=== PATIENT | female | born 1975 | race Caucasian/White ===

== ENCOUNTER 2018-02-11 11:30 | Emergency (ER) | payer OTHER ==
[2018-02-11 11:30] VITALS: BMI 28.3
[2018-02-11 11:42] VITALS: RESP 18; O2SAT 100
[2018-02-11] MEDS ORDERED: Sodium Chloride 0.9% 1,000 ML ONE (12:15)
[2018-02-11] MEDS: Sodium Chloride 0.9% 1,000 ML IV ONE (12:35)
--- NOTE | 2018-02-11 12:37 | C.PDOC ---
History Of Present Illness 42 y/o female presents to the ER complaining of abdominal pain. Patient states that she was evaluated for abdominal pain at [facility] yesterday and she had labwork and CT scan done. Upon discharge, she was instructed to follow up with her PMD. As per son, patient was told that she may need to have her gallbladder removed. Denies having fever, chills, and other complaints at this time. Time Seen by Provider: 02/11/18 11:44 Chief Complaint (Nursing): Abdominal Pain History Per: Patient, Family History/Exam Limitations: no limitations Onset/Duration Of Symptoms: Days Current Symptoms Are (Timing): Still Present Severity: Moderate Location Of Pain/Discomfort: RUQ Associated Symptoms: denies: Fever, Chills Past Medical History Reviewed: Historical Data, Nursing Documentation, Vital Signs Vital Signs: Last Vital Signs Temp 98.3 F 02/11/18 15:36 Pulse 57 L 02/11/18 15:36 Resp 18 02/11/18 15:36 BP 155/90 H 02/11/18 15:36 Pulse Ox 100 02/11/18 18:14 - Medical History PMH: Hypothyroidism Surgical History: Appendectomy Family History: States: No Known Family Hx - Social History Hx Tobacco Use: No Hx Alcohol Use: No Hx Substance Use: No - Immunization History Hx Tetanus Toxoid Vaccination: No Hx Influenza Vaccination: No Hx Pneumococcal Vaccination: No Review Of Systems Except As Marked, All Systems Reviewed And Found Negative. Constitutional: Negative for: Fever, Chills Gastrointestinal: Positive for: Abdominal Pain (RUQ abdominal pain). Negative for: Nausea, Vomiting Genitourinary: Negative for: Dysuria, Hematuria Physical Exam - Physical Exam Appears: Non-toxic, No Acute Distress Skin: Normal Color, Warm, Dry Head: Atraumatic, Normacephalic Eye(s): bilateral: Normal Inspection Nose: Normal Oral Mucosa: Moist Neck: Supple Chest: Symmetrical Cardiovascular: Rhythm Regular Respiratory: Normal Breath Sounds, No Rales, No Rhonchi, No Wheezing Gastrointestinal/Abdominal: Soft, Tenderness (RUQ tenderness), No Guarding, No Rebound Neurological/Psych: Oriented x3, Normal Speech ED Course And Treatment - Laboratory Results Result Diagrams: 02/11/18 12:40 02/11/18 12:40 Lab Interpretation: No Acute Changes Urine POC: Negative O2 Sat by Pulse Oximetry: 100 (RA) Pulse Ox Interpretation: Normal - CT Scan/US No standard instances Other Rad Studies (CT/US): Read By Radiologist, Radiology Report Reviewed CT/US Interpretation: Date of service: 02/11/2018. HISTORY: Pain RUQ. COMPARISON: None. TECHNIQUE: Sonographic evaluation of the right upper quadrant of the abdomen. FINDINGS: LIVER: Measures 17.5 cm in length. Normal echogenicity of the liver parenchyma. No mass. No intrahepatic bile duct dilatation. GALLBLADDER: Unremarkable. No gallstones. COMMON BILE DUCT: Measures 3 mm. No stones. No dilatation. PANCREAS: Unremarkable as visualized. No mass. No ductal dilatation. RIGHT KIDNEY: Measures 9.3 cm in length. Normal echogenicity. No calculus, mass, or hydronephrosis. AORTA: No aneurysmal dilatation. IVC: Unremarkable. OTHER FINDINGS: None . IMPRESSION : Unremarkable examination. No evidence of cholelithiasis or cholecystitis. Progress Note: Treated with IVF NSS, toradol, pepcid and maalox. Patient continues to have RLQ abdominal pain. Morphine ordered and patient refused. Patient offered admission for abdominal pain but refused and requested to be discharged to follow up with Dr Cherie Ziegler Medical Decision Making Medical Decision Making: Plan: --Labs --UA --US-Abd --Toradol IV -- IV Fluids Disposition Counseled Patient/Family Regarding: Studies Performed, Diagnosis, Need For Followup - Disposition Referrals: Jr Ziegler MD [Medical Doctor] - Madison June MD [Medical Doctor] - Disposition: HOME/ ROUTINE Disposition Time: 16:30 Condition: STABLE Additional Instructions: Return to ED if any increase symptoms Follow up with PMD for further evaluation Follow up with GI for further evaluation Instructions: Acute Abdomen (Belly Pain), Adult (DC) Forms: [employer] (Angolan) - POA Present On Arrival: None - Clinical Impression Clinical Impression: Abdominal pain - PA / BUSINESS OFFICE MANAGER / Resident Statement MD/DO has reviewed & agrees with the documentation as recorded. - Scribe Statement The provider has reviewed the documentation as recorded by the [employer] Provider Attestation All medical record entries made by the Scribe were at my direction and personally dictated by me. I have reviewed the chart and agree that the record accurately reflects my personal performance of the history, physical exam, medical decision making, and the department course for this patient. I have also personally directed, reviewed, and agree with the discharge instructions and disposition.
[2018-02-11 12:49] LABS: BASO % 1.1 % (0.0-2.0); LYMPH # 1.1 K/uL (1.0-4.3); LYMPH % 38.9 % (20.0-40.0); MEAN CELL VOLUME 86.4 fL (81.0-99.0); MEAN CORPUSCULAR HEMOGLOBIN 28.9 pg (27.0-31.0); MEAN CORPUSCULAR HGB CONC 33.4 g/dL (33.0-37.0); MEAN PLATELET VOLUME 10.6 fL (7.2-11.7); MONO # 0.3 K/uL (0.0-0.8); MONO % 10.9 % (0.0-10.0); NEUT # 1.4 K/uL (1.8-7.0); NEUT % 49.1 % (50.0-75.0); NRBC % 0.2 % (0.0-2.0); RBC 3.69 Mil/uL (3.80-5.20); RED CELL DISTRIBUTION WIDTH 13.6 % (11.5-14.5); WHITE BLOOD COUNT 2.8 K/uL (4.8-10.8)
[2018-02-11 12:51] LABS: HEMOGLOBIN 10.7 g/dL (11.0-16.0)
[2018-02-11 13:00] LABS: HCG,QUALITATIVE URINE NEGATIVE (NEGATIVE)
[2018-02-11 13:02] LABS: ALB/GLOB RATIO 1.2 (1.0-2.1); ALBUMIN 4.1 g/dL (3.5-5.0); ALT/SGPT 164 U/L (9-52); AST/SGOT 182 U/L (14-36); BLOOD UREA NITROGEN 8 mg/dL (7-17); CALCIUM 8.5 mg/dl (8.6-10.4); GFR AFRICAN-AMERICAN > 60; GFR NON-AFRICAN AMERICAN > 60; LIPASE 55 U/L (23-300)
[2018-02-11 13:10] LABS: SQUAMOUS EPITHIAL 1 /hpf (0-5); URINE BACTERIA RARE (<OCC); URINE BILIRUBIN NEGATIVE (NEGATIVE); URINE CLARITY Clear (Clear); URINE COLOR Straw (YELLOW); URINE GLUCOSE (UA) NORMAL (Normal); URINE LEUKOCYTE ESTERASE NEG Leu/uL (Negative); URINE PROTEIN NEGATIVE (NEGATIVE); URINE UROBILINOGEN NORMAL mg/dL (0.2-1.0)
[2018-02-11 13:28] LABS: URINE BLOOD 2+ (NEGATIVE)
--- NOTE | 2018-02-11 14:08 | US ---
Date of service: 02/11/2018 HISTORY: Pain RUQ COMPARISON: None. TECHNIQUE: Sonographic evaluation of the right upper quadrant of the abdomen. FINDINGS: LIVER: Measures 17.5 cm in length. Normal echogenicity of the liver parenchyma. No mass. No intrahepatic bile duct dilatation. GALLBLADDER: Unremarkable. No gallstones. COMMON BILE DUCT: Measures 3 mm. No stones. No dilatation. PANCREAS: Unremarkable as visualized. No mass. No ductal dilatation. RIGHT KIDNEY: Measures 9.3 cm in length. Normal echogenicity. No calculus, mass, or hydronephrosis. AORTA: No aneurysmal dilatation. IVC: Unremarkable. OTHER FINDINGS: None . IMPRESSION: Unremarkable examination. No evidence of cholelithiasis or cholecystitis.
[2018-02-11] MEDS: Alum-Mag Hydrox-Simethicone Susp (30 mL) PO STA (14:40)
[2018-02-11] MEDS ORDERED: Alum-Mag Hydrox-Simethicone Susp (30 mL) ONE (14:44)
[2018-02-11] MEDS ORDERED: Morphine 4 MG/ML VIAL ONE (15:31)
[2018-02-11 15:37] VITALS: BP 155/90; PULSE 57; TEMP 98.3
== END 2018-02-11 16:30 | disposition home or self-care (01) ==
LOC: C.ER 11:30
DX: R10.11 Right upper quadrant pain (principal)
CPT/HCPCS: 76705; 80053; 81001; 83690; 84703; 85025; 96361; 96374; 96375; 99285; J1885; J7030

== ENCOUNTER 2018-02-18 08:57 | Day surgery (SDC) | payer SELFPAY ==
[2018-02-18 09:41] VITALS: O2SAT 100
[2018-02-18 09:45] VITALS: BMI 21.4
[2018-02-18] MEDS ORDERED: Pantoprazole 40 mg EC Tab PO STA (10:39)
--- NOTE | 2018-02-18 10:39 | CP.SDSHP ---
Same Day Surgery H & P - History Proposed Procedure: egd Pre-Op Diagnosis: epigastric pain/tenderness - Previous Medical/Surgical History Endocrine/Metabolic: Thyroid Disease Misc: Hepatitis (abnormal LFT's unknown etiology(work up in progress but viral markers negative)) Previous Surgical History: appendectomy. NSVDx2 - Allergies Allergies: Allergies No Known Allergies Allergy (Verified 02/11/18 11:40) - Physical Exam Vital Signs: Vital Signs 02/18/18 09:33 Temperature 98.0 F Pulse Rate 74 Respiratory 21 Rate Blood Pressure 96/66 L O2 Sat by Pulse 100 Oximetry Mental Status: Alert & Oriented x3 Neuro: WNL Heart: WNL Lungs: WNL GI: WNL - Impression Impression: epigastric pain and tenderness Pt. Evaluated Today:Candidate for Anesthesia & Procedure: Yes - Date & Time Date: 02/18/18 Time: 10:38 Short Stay Discharge - Short Stay Discharge Admitting Diagnosis/Reason for Visit: EPIGASTRIC PAIN, EPIGASTRIC ABDOMINAL PAIN , ABNORM Disposition: HOME/ ROUTINE
[2018-02-18] MEDS ORDERED: Propofol 10 mg/ml Inj (20 ML) ONE (10:40)
[2018-02-18] MEDS ORDERED: Pantoprazole 40 mg EC Tab PO ONE (12:30)
[2018-02-18 12:39] VITALS: TEMP 97
[2018-02-18 12:46] VITALS: BP 134/80; PULSE 60; RESP 20
== END 2018-02-18 12:35 | disposition home or self-care (01) ==
LOC: C.ENDO 08:57
PROVIDERS: ATTEND Internal Medicine Gastroenterology
DX: K29.50 Unspecified chronic gastritis without bleeding (principal); R74.0 Nonspecific elevation of levels of transaminase and lactic acid dehydrogenase [LDH]; R94.5 Abnormal results of liver function studies; K20.9 Esophagitis, unspecified; K44.9 Diaphragmatic hernia without obstruction or gangrene
CPT/HCPCS: 43239; 84703; 88305; 88312; 88342; J2704